=== PATIENT | male | born 1945 | race Caucasian/White ===

== ENCOUNTER 2018-12-09 11:34 | Day surgery (SDC) | payer OTHER, MEDICAID ==
[~2018-12-09] VITALS: Ht 177.8 cm; Wt 83.3 kg
[~2018-12-09 11:34] MED LIST: ATIVAN PO; CITRACAL PO; DIVA-48 PO; IMODIUM PO; LOMOTIL PO; MAGNESIUM PO; MIRT30TA PO; VITD3
[2018-12-09 12:34] VITALS: Ht 177.8 cm; Wt 83.3 kg
[2018-12-09 12:49] VITALS: BP 124/68; PULSE 65; RESP 18
[2018-12-09] MEDS ORDERED: PROPOFOL 20 ML ONE (13:20)
[2018-12-09] MEDS ORDERED: FENTAnyl 50 MCG/ML VIAL ONE (13:20)
[2018-12-09 13:37] VITALS: BP 122/73; PULSE 86; RESP 12
== END 2018-12-09 16:01 | disposition home or self-care (01) ==
LOC: GIL 11:34
PROVIDERS: ATTEND Internal Medicine Gastroenterology
DX: K21.9 Gastro-esophageal reflux disease without esophagitis (principal)
CPT/HCPCS: 43239; 88305; 88312; J3010